=== PATIENT | male | born 1990 | race Caucasian/White ===

== ENCOUNTER 2016-08-22 04:21 | Emergency (ER) | payer BC, OTHER ==
[2016-08-22 04:29] VITALS: TEMP 97.3
--- NOTE | 2016-08-22 04:43 | ED ---
Back Pain HPI - General Chief Complaint: Back Pain/Injury Stated Complaint: FALL-IHS Time Seen by Provider: 08/22/16 04:30 Source: patient, RN notes reviewed Limitations: no limitations - History of Present Illness Initial Comments: This is a 25-year-old male with a benign past medical history states she was trying to unload a pallet at work around 2:30 AM when the pelvis slipped backwards and he fell on his buttock. He complains of some pain to his low back when he was trying to move the socket was on the palate he was moving it was about 6/10 currently it is about a 2-3/10 pain he denies any radiation any urinary or fecal incontinence or any other complaints. MD Complaint: back pain, back injury, fall - Related Data Home Medications Medication Instructions Recorded Confirmed Gemfibrozil [Lopid] 08/22/16 08/22/16 amLODIPine [Norvasc] 08/22/16 Previous Rx's Medication Instructions Recorded Ibuprofen [Motrin] 800 mg PO Q6HR PRN #20 tab 08/22/16 Allergies Allergy/AdvReac Type Severity Reaction Status Date / Time No Known Allergies Allergy Verified 08/22/16 04:29 Review of Systems ROS Statement: Those systems with pertinent positive or pertinent negative responses have been documented in the HPI. ROS Other: All systems not noted in ROS Statement are negative. Past Medical History Past Medical History: Hyperlipidemia, Hypertension, Thyroid Disorder History of Any Multi-Drug Resistant Organisms: None Reported Past Surgical History: No Surgical Hx Reported Past Psychological History: No Psychological Hx Reported, ADD/ADHD Smoking Status: Former smoker Past Alcohol Use History: None Reported Past Drug Use History: None Reported General Exam - General Exam Comments Initial Comments: This is a well-developed well-nourished awake alert oriented x3 male Limitations: no limitations General appearance: alert, in no apparent distress Head exam: Present: atraumatic, normocephalic, normal inspection Neck exam: Present: normal inspection. Absent: tenderness, meningismus, lymphadenopathy Respiratory exam: Absent: chest wall tenderness Extremities exam: Present: normal inspection, full ROM, normal capillary refill. Absent: tenderness, pedal edema, joint swelling, calf tenderness Back exam: Present: tenderness. Absent: paraspinal tenderness (Paraspinous muscle tenderness at the mid to lower lumbar spine. No spinous process tenderness no step-off or crepitation.) Psychiatric exam: Present: normal affect, normal mood Skin exam: Present: warm, dry, intact, normal color. Absent: rash Course Vital Signs 08/22/16 04:26 Temperature 97.3 F L Pulse Rate 115 H Respiratory 22 Rate Blood Pressure 174/91 O2 Sat by Pulse 96 Oximetry Medical Decision Making - Medical Decision Making I did discuss findings with patient be placed on anti-inflammatories limited lifting 20 pound maximum next 2 days follow-up with his doctor return when necessary - Radiology Data Radiology results: report reviewed (I did review the x-ray and report no acute findings.), image reviewed Disposition Clinical Impression: Strain of lumbar region Disposition: HOME SELF-CARE Condition: Good Instructions: Acute Low Back Pain (ED) Prescriptions: Ibuprofen [Motrin] 800 mg PO Q6HR PRN #20 tab PRN Reason: Pain
[2016-08-22 05:13] VITALS: BP 168/89; PULSE 100; RESP 20
--- NOTE | 2016-08-22 05:28 | XR ---
EXAM: XR Lumbar Spine, 5 views. CLINICAL HISTORY: Reason: Pain TECHNIQUE: Frontal, bilateral oblique, and lateral views of the lumbar spine. COMPARISON: No relevant prior studies available. FINDINGS: Vertebrae: Unremarkable. No acute fracture. Normal alignment. Disc spaces: No acute findings. No significant narrowing. Soft tissues: Unremarkable. IMPRESSION: Normal lumbar spine x-rays.
== END 2016-08-22 05:12 | disposition home or self-care (01) ==
LOC: EC 04:21
DX: S39.012A Strain of muscle, fascia and tendon of lower back, initial encounter (principal); I10 Essential (primary) hypertension; E78.5 Hyperlipidemia, unspecified; Z87.891 Personal history of nicotine dependence; Z79.899 Other long term (current) drug therapy; W01.0XXA Fall on same level from slipping, tripping and stumbling without subsequent striking against object, initial encounter; X50.9XXA Other and unspecified overexertion or strenuous movements or postures, initial encounter; Y92.69 Other specified industrial and construction area as the place of occurrence of the external cause; Y99.0 Civilian activity done for income or pay
CPT/HCPCS: 72110; 99283